=== PATIENT | male | born 1980 | race Caucasian/White ===

== ENCOUNTER 2022-12-21 14:20 | Emergency (ER) | payer MEDICARE, MEDICAID, SELFPAY ==
[2022-12-21 14:30] VITALS: BP 127/87; PULSE 95; RESP 14; TEMP 36.4; O2SAT 96
[2022-12-21 15:28] VITALS: BP 120/87; PULSE 89; RESP 17; TEMP 36.5; O2SAT 96
--- NOTE | 2022-12-21 15:49 | ED_ITS ---
Documented by User: BRISA Ken 12/21/22 16:07 HPI - Abdominal Pain General: Chief Complaint: Abdominal Pain Stated Complaint: abd pain Time Seen by Provider: 12/21/22 15:40 Source: patient Mode of arrival: ambulatory Limitations: no limitations History of Present Illness: Patient is a 42-year-old male who presents to ED today with a complaint of suprapubic abdominal pain that began approximately 3 to 4 days ago. He states pain seems to be worse with urination and defecation. He is able to pass stool and flatulence although has noted some loosening of stool consistency. He has not noticed any hematuria, cloudy, or odorous urine. No flank pain. No fevers. He is not having any nausea or vomiting. He denies any masses/bulges consistent with a hernia. He denies scrotal/testicular pain, redness, swelling. No penile discharge. Denies genitalia rashes/lesions. MD elicited complaint: abdominal pain Pertinent past history: none Pain Consistency: constant Location: Suprapubic Severity: mild Radiation: none Migration to: no migration Exacerbating factors: other (urinating/defecating) Relieving factors: nothing Associated Symptoms: Reports diarrhea; Denies chills, dysuria, fever(s), hematochezia, hematemesis, melena, nausea and vomiting Review of Systems Const: Denies: fever(s), chills, body aches, fatigue or malaise Card: Denies: chest pain Resp: Denies: dyspnea GI: Reports: abdominal pain and diarrhea; Denies: nausea, vomiting, hematemesis, hematochezia or melena : Denies: flank pain, difficulty urinating, dysuria, urinary frequency, urinary urgency or urinary hesitancy Musc: Denies: neck pain, back pain, extremity pain or joint pain Skin/Breast: Denies: rash Neuro: Denies: headache(s), numbness in extremities, weakness in extremities, sensory changes or dizziness [facility] ED PFSH: Medical History No pertinent family history Surgical History No pertinent past surgical history Physical Exam Const: COMMON NORMALS: no acute distress, patient oriented x3, no limitations, alert and well nourished ORIENTATION/CONSCIOUSNESS: Yes awake, Yes oriented to person, Yes oriented to place and Yes oriented to time HENMT: COMMON NORMALS: normocephalic and atraumatic HEAD & SCALP: normal to inspection, normocephalic and atraumatic Resp: COMMON NORMALS: normal respiratory effort and clear to auscultation bilaterally AUSCULTATION: clear to auscultation bilaterally Cardio: COMMON NORMALS: regular rate and regular rhythm RATE: regular rate RHYTHM: regular rhythm GI: COMMON NORMALS: Normal to inspection, nondistended, normoactive bowel sounds present, Soft to palpation, No hepatosplenomegaly present and no masses INSPECTION: Yes normal to inspection AUSCULTATION: Yes normoactive bowel sounds PALPATION: Yes Soft to palpation, Yes Tenderness to palpation present (GI) (suprapubic ), No Guarding due to palpation present (GI), No Rigid due to palpation and Yes No hepatosplenomegaly present : COMMON NORMALS: Yes no CVA tenderness, Yes normal external exam, Yes Testes normal, Yes scrotum normal, Yes no scrotal swelling and Yes No hernias present BLADDER/KIDNEY EXAM: Yes no CVA tenderness Back/Pelvis: COMMON NORMALS: no CVA tenderness, thoracic and lumbar spine normal to inspection, no thoracic nor lumbar tenderness and thoraco-lumbar ROM normal Extremity: COMMON NORMALS: normal to inspection GENERAL: Yes normal exam except as noted Neuro: SHANTE COMA SCALE: document GCS findings Shante coma scale eye opening: Spontaneous Shante coma scale verbal response: Orientated Davis coma scale motor response: Obey commands Shante coma scale total score: 15 COMMON NORMALS: patient oriented x3 and gait normal SENSORIUM/ORIENTATION: Yes alert, Yes oriented to person, Yes oriented to place and Yes oriented to time Skin: COMMON NORMALS: no rashes or lesions noted GENERAL SKIN EXAM: no rashes or lesions noted Course Vital Signs: Vital signs: Vital Signs Temperature 97.7 F 12/21/22 15:28 Pulse Rate 74 12/21/22 18:39 Respiratory Rate 18 12/21/22 18:39 Blood Pressure 147/97 12/21/22 18:39 Pulse Oximetry 98 12/21/22 18:39 Oxygen Delivery Me thod 12/21/22 15:28 MDM - Abdominal Pain Lab Data 12/21/22 15:32 12/21/22 15:32 Labs/Radiology: Radiology Impressions Abdomen/Pelvis CT 12/21/22 16:08 IMPRESSION: 1. 5.8 cm mass in the posterior right kidney, highly suspicious for renal cell carcinoma. 2. Acute sigmoid diverticulitis. COMMENTS: Consistent with the [employer]'s Incidental Findings Committee white paper (J Am Nellie Radiol 2018): Any incidental renal lesion less than 1 cm or classified as too small to characterize, or any incidental cystic renal lesion characterized as simple-appearing, is likely benign. No follow-up imaging is recommended for these lesions per consensus recommendations based on imaging criteria. ADDENDUM: 12/21/22 1800 THIS REPORT CONTAINS FINDINGS THAT MAY BE CRITICAL TO PATIENT CARE. The findings were verbally communicated via telephone conference with BRISA Green at 5:58 PM CDT on 12/21/2022. The findings were acknowledged and understood. Laboratory Results WBC 12.2 10^3/uL (4.0-10.0) H 12/21/22 15:32 RBC 5.39 10^6/uL (4.1-5.3) H 12/21/22 15:32 Hgb 15.6 g/dL (11.7-16.6) 12/21/22 15:32 Hct 46.9 % (42.0-52.0) 12/21/22 15:32 MCV 87.0 fl (80-94) 12/21/22 15:32 MCH 28.9 pg (28.0-34.0) 12/21/22 15:32 MCHC 33.3 g/dL (30.0-36.0) 12/21/22 15:32 RDW 13.5 % (12.1-15.1) 12/21/22 15:32 Plt Count 318 10^3/cmm (130-400) 12/21/22 15:32 MPV 11.0 fL (7.4-10.4) H 12/21/22 15:32 Neut % (Auto) 61.9 % 12/21/22 15:32 Lymph % (Auto) 26.4 % 12/21/22 15:32 [place] % (Auto) 9.2 % 12/21/22 15:32 Eos % (Auto) 1.5 % 12/21/22 15:32 Baso % (Auto) 0.7 % 12/21/22 15:32 Neut # (Auto) 7.53 10^3/uL (1.8-7.7) 12/21/22 15:32 Lymph # (Auto) 3.2 10^3/uL (0.8-4.8) 12/21/22 15:32 [place] # (Auto) 1.1 10^3/uL (0.2-0.9) H 12/21/22 15:32 Eos # (Auto) 0.2 10^3/uL (0.0-0.8) 12/21/22 15:32 Baso # (Auto) 0.1 10^3/uL (0.0-0.1) 12/21/22 15:32 Nucleated RBC % (auto) 0 % 12/21/22 15:32 Nucleated RBCs # 0.0 /100WBC 12/21/22 15:32 Sodium 139 mmol/L (136-145) 12/21/22 15:32 Potassium 3.6 mmol/L (3.5-5.1) 12/21/22 15:32 Chloride 100 mmol/L (98-107) 12/21/22 15:32 Carbon Dioxide 29 mmol/L (22-29) 12/21/22 15:32 Anion Gap 13.6 (5-19) 12/21/22 15:32 BUN 6 mg/dL (6-20) 12/21/22 15:32 Creatinine 0.8 mg/dL (0.7-1.2) 12/21/22 15:32 GFR Calculation 106.5 mL/min (90-130) 12/21/22 15:32 Glucose 96 mg/dL (65-115) 12/21/22 15:32 Calculated Osmolality 285 mOsm/kg (285-295) 12/21/22 15:32 Calcium 8.6 mg/dL (8.5-10.5) 12/21/22 15:32 Total Bilirubin 0.4 mg/dL (0.15-1.2) 12/21/22 15:32 AST 16 U/L (0-40) 12/21/22 15:32 ALT 23 U/L (0-41) 12/21/22 15:32 Alkaline Phosphatase 60 U/L (40-130) 12/21/22 15:32 Total Protein 7.3 g/dL (6.6-8.7) 12/21/22 15:32 Albumin 3.9 g/dL (3.5-5.2) 12/21/22 15:32 Globulin 3.4 g/dL (1.3-4.6) 12/21/22 15:32 Lipase 17 U/L (13-60) 12/21/22 15:32 Urine Color Yellow (Yellow) 12/21/22 15:49 Urine Appearance Clear (CLEAR) 12/21/22 15:49 Urine pH 6 (5-7) 12/21/22 15:49 Ur Specific [place] 1.010 (1.005-1.030) 12/21/22 15:49 Urine Protein Neg (Negative) 12/21/22 15:49 Urine Glucose (UA) Norm (Normal) 12/21/22 15:49 Urine Ketones Negative (Negative) 12/21/22 15:49 Urine Blood Neg (Negative) 12/21/22 15:49 Urine Nitrate Negative (Negative) 12/21/22 15:49 Urine Bilirubin Neg (Negative) 12/21/22 15:49 Urine Urobilinogen Norm mg/dL (Negative) 12/21/22 15:49 Ur Leukocyte Esterase Negative (Negative) 12/21/22 15:49 Discharge Plan Discharge Patient Disposition: Home Clinical Impression: Sigmoid diverticulitis, Mass of right kidney Condition: Stable Prescriptions: New metronidazole 500 mg tablet 500 mg PO Q8H 7 Days Qty: 21 0RF ciprofloxacin HCl 500 mg tablet 500 mg PO BID 7 Days Qty: 14 0RF ondansetron 4 mg tablet,disintegrating 4 mg PO Q8H PRN (Reason: nausea and vomiting) Qty: 20 0RF No Action omeprazole 20 mg tablet,delayed release (DR/EC) 20 mg PO DAILY Discharge Orders: Discharge ED (Routine); Ordered 12/21/22 Ordered By: Davidson Villa Referrals: Crystal Robison NP [Primary Care Provider] - Discharge Diet: Advance as tolerated Discharge Activity: Resume usual activity Activity Restrictions/Additional Instructions: Follow-up with primary care provider within the next 7 to 10 days for reevaluation. Case management should be contacting you in the next several days to set up an appointment with urologist and oncologist for further evaluation of right renal mass. Take medications as prescribed. Return to the ER or your medical provider if condition worsens. Please read and understand discharge instructions. Thank you for choosing [facility] for your healthcare needs today. Please realize this is an emergency room and that we are providing you with a medical screening exam and this may not be complete and all inclusive of all the testing and or work up that you may need to determine your ailment or severity of your illness. It is very important that you follow up as instructed or that you return to the Emergency Department should you have concerns or if your condition changes or worsens in any way. Sign Out Sign Out Data: Patient Sign Out occurred on 12/21/22 at 17:12. Patient's care was discussed, and care was transferred from to BRISA Catalan. Coding Level of Care Code ED Remote Sensing Analyst for [place] [facility] Documented by User: BRISA Catalan 12/22/22 02:12 HPI - Abdominal Pain General: Chief Complaint: Abdominal Pain Stated Complaint: abd pain Time Seen by Provider: 12/21/22 15:40 [facility] ED PFSH: Medical History No pertinent family history Surgical History No pertinent past surgical history Physical Exam Neuro: SHANTE COMA SCALE: document GCS findings Shante coma scale total score: 15 Course Vital Signs: Vital signs: Vital Signs Temperature 97.7 F 12/21/22 15:28 Pulse Rate 74 12/21/22 18:39 Respiratory Rate 18 12/21/22 18:39 Blood Pressure 147/97 12/21/22 18:39 Pulse Oximetry 98 12/21/22 18:39 Oxygen Delivery Me thod 12/21/22 15:28 MDM - Abdominal Pain Medical Decision Making Patient is a 42-year-old male who presents to ED today with a complaint of suprapubic abdominal pain that began approximately 3 to 4 days ago. He states pain seems to be worse with urination and defecation. He is able to pass stool and flatulence although has noted some loosening of stool consistency. He has not noticed any hematuria, cloudy, or odorous urine. No flank pain. No fevers. He is not having any nausea or vomiting. Vitals are stable. Patient appears in no acute distress or pain and has some tenderness upon palpation of the suprapubic area. Rest of exam is benign. Labs are all unremarkable. CT of abdomen pelvis shows acute sigmoid diverticulitis with no bowel perforation or abscess seen. 5.8 cm mass in the posterior right kidney noted, which is highly suspicious for renal cell carcinoma. I told patient about CT findings of diverticulitis and right kidney mass. I placed orders with case management for patient be referred to oncology and urologist for further evaluation and work-up of right renal mass. Patient was stable for discharge home and sent with a pr escription for antibiotics and Zofran. Follow-up with PCP within the next week for reevaluation. Strict return to ED precautions given. Patient understood and agreed with plan. Dr. Parisi reviewed case and agreed with plan. Lab Data I reviewed the patient's lab results. 12/21/22 15:32 12/21/22 15:32 Labs/Radiology: Radiology Impressions Abdomen/Pelvis CT 12/21/22 16:08 IMPRESSION: 1. 5.8 cm mass in the posterior right kidney, highly suspicious for renal cell carcinoma. 2. Acute sigmoid diverticulitis. COMMENTS: Consistent with the [employer]'s Incidental Findings Committee white paper (J Am Nellie Radiol 2018): Any incidental renal lesion less than 1 cm or classified as too small to characterize, or any incidental cystic renal lesion characterized as simple-appearing, is likely benign. No follow-up imaging is recommended for these lesions per consensus recommendations based on imaging criteria. ADDENDUM: 12/21/22 1800 THIS REPORT CONTAINS FINDINGS THAT MAY BE CRITICAL TO PATIENT CARE. The findings were verbally communicated via telephone conference with BRISA Green at 5:58 PM CDT on 12/21/2022. The findings were acknowledged and understood. Laboratory Results WBC 12.2 10^3/uL (4.0-10.0) H 12/21/22 15:32 RBC 5.39 10^6/uL (4.1-5.3) H 12/21/22 15:32 Hgb 15.6 g/dL (11.7-16.6) 12/21/22 15:32 Hct 46.9 % (42.0-52.0) 12/21/22 15: MCV 87.0 fl (80-94) 12/21/22 15:32 MCH 28.9 pg (28.0-34.0) 12/21/22 15: MCHC 33.3 g/dL (30.0-36.0) 12/21/22 15: RDW 13.5 % (12.1-15.1) 12/21/22 15:32 Plt Count 318 10^3/cmm (130-400) 12/21/22 15: MPV 11.0 fL (7.4-10.4) H 12/21/22 15:32 Neut % (Auto) 61.9 % 12/21/22 15:32 Lymph % (Auto) 26.4 % 12/21/22 15:32 [place] % (Auto) 9.2 % 12/21/22 15: Eos % (Auto) 1.5 % 12/21/22 15:32 Baso % (Auto) 0.7 % 12/21/22 15:32 Neut # (Auto) 7.53 10^3/uL (1.8-7.7) 12/21/22 15:32 Lymph # (Auto) 3.2 10^3/uL (0.8-4.8) 12/21/22 15:32 [place] # (Auto) 1.1 10^3/uL (0.2-0.9) H 12/21/22 15:32 Eos # (Auto) 0.2 10^3/uL (0.0-0.8) 12/21/22 15:32 Baso # (Auto) 0.1 10^3/uL (0.0-0.1) 12/21/22 15: Nucleated RBC % (auto) 0 % 12/21/22 15: Nucleated RBCs # 0.0 /100WBC 12/21/22 15:32 Sodium 139 mmol/L (136-145) 12/21/22 15:32 Potassium 3.6 mmol/L (3.5-5.1) 12/21/22 15:32 Chloride 100 mmol/L (98-107) 12/21/22 15:32 Carbon Dioxide 29 mmol/L (22-29) 12/21/22 15:32 Anion Gap 13.6 (5-19) 12/21/22 15:32 BUN 6 mg/dL (6-20) 12/21/22 15:32 Creatinine 0.8 mg/dL (0.7-1.2) 12/21/22 15:32 GFR Calculation 106.5 mL/min (90-130) 12/21/22 15:32 Glucose 96 mg/dL (65-115) 12/21/22 15:32 Calculated Osmolality 285 mOsm/kg (285-295) 12/21/22 15:32 Calcium 8.6 mg/dL (8.5-10.5) 12/21/22 15:32 Total Bilirubin 0.4 mg/dL (0.15-1.2) 12/21/22 15:32 AST 16 U/L (0-40) 12/21/22 15:32 ALT 23 U/L (0-41) 12/21/22 15:32 Alkaline Phosphatase 60 U/L (40-130) 12/21/22 15:32 Total Protein 7.3 g/dL (6.6-8.7) 12/21/22 15:32 Albumin 3.9 g/dL (3.5-5.2) 12/21/22 15:32 Globulin 3.4 g/dL (1.3-4.6) 12/21/22 15:32 Lipase 17 U/L (13-60) 12/21/22 15:32 Urine Color Yellow (Yellow) 12/21/22 15:49 Urine Appearance Clear (CLEAR) 12/21/22 15:49 Urine pH 6 (5-7) 12/21/22 15:49 Ur Specific [place] 1.010 (1.005-1.030) 12/21/22 15:49 Urine Protein Neg (Negative) 12/21/22 15:49 Urine Glucose (UA) Norm (Normal) 12/21/22 15:49 Urine Ketones Negative (Negative) 12/21/22 15:49 Urine Blood Neg (Negative) 12/21/22 15:49 Urine Nitrate Negative (Negative) 12/21/22 15:49 Urine Bilirubin Neg (Negative) 12/21/22 15:49 Urine Urobilinogen Norm mg/dL (Negative) 12/21/22 15:49 Ur Leukocyte Esterase Negative (Negative) 12/21/22 15:49 Discharge Plan Discharge Patient Disposition: Home Clinical Impression: Sigmoid diverticulitis, Mass of right kidney Condition: Stable Prescriptions: New metronidazole 500 mg tablet 500 mg PO Q8H 7 Days Qty: 21 0RF ciprofloxacin HCl 500 mg tablet 500 mg PO BID 7 Days Qty: 14 0RF ondansetron 4 mg tablet,disintegrating 4 mg PO Q8H PRN (Reason: nausea and vomiting) Qty: 20 0RF No Action omeprazole 20 mg tablet,delayed release (DR/EC) 20 mg PO DAILY Discharge Orders: Discharge ED (Routine); Ordered 12/21/22 Ordered By: Davidson Villa Referrals: Crystal Robison NP [Primary Care Provider] - Discharge Diet: Advance as tolerated Discharge Activity: Resume usual activity Activity Restrictions/Additional Instructions: Follow-up with primary care provider within the next 7 to 10 days for reevaluation. Case management should be contacting you in the next several days to set up an appointment with urologist and oncologist for further evaluation of right renal mass. Take medications as prescribed. Return to the ER or your medical provider if condition worsens. Please read and understand discharge instructions. Thank you for choosing [facility] for your healthcare needs today. Please realize this is an emergency room and that we are providing you with a medical screening exam and this may not be complete and all inclusive of all the testing and or work up that you may need to determine your ailment or severity of your illness. It is very important that you follow up as instructed or that you return to the Emergency Department should you have concerns or if your co ndition changes or worsens in any way. Sign Out Sign Out Data: Patient Sign Out occurred on 12/21/22 at 17:12. Patient's care was discussed, and care was transferred from to BRISA Catalan. Coding Level of Care Code ED Remote Sensing Analyst for Natacha Harvey
[2022-12-21 15:52] LABS: Basophils # 0.1 10^3/uL (0.0-0.1); Basophils % 0.7 %; Eosinophils # 0.2 10^3/uL (0.0-0.8); Eosinophils % 1.5 %; Hematocrit 46.9 % (42.0-52.0); Hemoglobin 15.6 g/dL (11.7-16.6); Lymphocytes # 3.2 10^3/uL (0.8-4.8); Lymphocytes % 26.4 %; Mean Corpuscular HGB Conc 33.3 g/dL (30.0-36.0); Mean Corpuscular Hemoglobin 28.9 pg (28.0-34.0); Monocytes # 1.1 10^3/uL (0.2-0.9); Monocytes % 9.2 %; Neutrophils # 7.53 10^3/uL (1.8-7.7); Neutrophils % 61.9 %; Nucleated Red Blood Cells % 0 %; Platelet Count 318 10^3/cmm (130-400); Red Blood Count 5.39 10^6/uL (4.1-5.3); Red Cell Distribution Width 13.5 % (12.1-15.1); White Blood Count 12.2 10^3/uL (4.0-10.0)
[2022-12-21 16:02] LABS: Add Urine Microscopic? NO; Charge for UA Resulting for Rev
[2022-12-21 16:06] LABS: Bilirubin Urine Neg (Negative); Blood Urine Neg (Negative); Glucose Urine UA Norm (Normal); Ketones Urine Negative (Negative); Leukocyte Esterase Urine Negative (Negative); Nitrate Urine Negative (Negative); Protein Urine Neg (Negative); Urine Appearance Clear (CLEAR); Urine Color Yellow (Yellow); Urobilinogen Urine Norm (Negative); pH Urine 6 (5-7)
--- NOTE | 2022-12-21 16:08 | CTR_ITS ---
PROCEDURE INFORMATION: Exam: CT Abdomen And Pelvis With Contrast Exam date and time: 12/21/2022 5:16 PM Age: 42 years old Clinical indication: Abdominal pain; Other: Lower abd pelvic pain; Additional info: Lower ab/pelvis pain TECHNIQUE: Imaging protocol: Computed tomography of the abdomen and pelvis with contrast. Radiation optimization: All CT scans at this facility use at least one of these dose optimization techniques: automated exposure control; mA and/or kV adjustment per patient size (includes targeted exams where dose is matched to clinical indication); or iterative reconstruction. Contrast material: OMNI 350; Contrast volume: 100 ml; Contrast route: INTRAVENOUS (IV); REPORTING DATA: Count of CT and Cardiac NM exams in prior 12 months: This patient has received 0 known CTs and 0 known cardiac nuclear medicine studies in the 12 months prior to the current study. COMPARISON: CT lumbar spine w con [id number] 03/05/2019 9:40 AM RADIATION DOSE METRICS: Total DLP (mGy-cm): 939.63 FINDINGS: Liver: 1.8 cm cyst in the superior left liver lobe, Hounsfield units less than 20. Mild diffuse fatty infiltration. No suspicious nodule. Gallbladder and bile ducts: Normal. No calcified stones. No ductal dilation. Pancreas: Normal. No ductal dilation. Spleen: Normal. No splenomegaly. Adrenal glands: Normal. No mass. Kidneys and ureters: 5.8 x 4.0 x 4.3 cm lobulated inhomogenous hypodense mass in the posterior mid right kidney with mild adjacent fat stranding. No extension into the right renal vein. The left kidney is normal. No calculus or hydronephrosis. Stomach and bowel: Diverticulosis of the sigmoid colon. There is inflammation of a diverticulum in the posterior proximal sigmoid colon with adjacent fat stranding, consistent with acute diverticulitis. No evidence for perforation. The stomach and small bowel are unremarkable. No obstruction. Appendix: The appendix is visualized and is normal. Intraperitoneal space: Fat stranding in the pelvis. No free air. No organized fluid collection. Vasculature: Unremarkable. No aneurysm. Lymph nodes: Unremarkable. No enlarged lymph nodes. Urinary bladder: Unremarkable as visualized. Reproductive: Unremarkable as visualized. Bones/joints: Anterior and posterior fusion of L5-S1. No acute fracture. Soft tissues: Unremarkable. CT/CT abdomen pelvis w con* [id number] IMPRESSION: 1. 5.8 cm mass in the posterior right kidney, highly suspicious for renal cell carcinoma. 2. Acute sigmoid diverticulitis. COMMENTS: Consistent with the [employer]'s Incidental Findings Committee white paper (J Am Nellie Radiol 2018): Any incidental renal lesion less than 1 cm or classified as too small to characterize, or any incidental cystic renal lesion characterized as simple-appearing, is likely benign. No follow-up imaging is recommended for these lesions per consensus recommendations based on imaging criteria.
[2022-12-21 16:09] LABS: Alanine Aminotransferase 23 U/L (0-41); Albumin Level 3.9 g/dL (3.5-5.2); Alkaline Phosphatase 60 U/L (40-130); Anion Gap 13.6 (5-19); Aspartate Amino Transferase 16 U/L (0-40); Blood Urea Nitrogen 6 mg/dL (6-20); Calcium 8.6 mg/dL (8.5-10.5); Carbon Dioxide 29 mmol/L (22-29); Chloride 100 mmol/L (98-107); Creatinine Clr Calc Pharmacy 148.6306; Globulin 3.4 g/dL (1.3-4.6); Glomerular Filtration Rate 106.5 mL/min (90-130); Glucose 96 mg/dL (65-115); Lipase 17 U/L (13-60); Osmolality Calculated 285 mOsm/kg (285-295); Potassium 3.6 mmol/L (3.5-5.1); Sodium 139 mmol/L (136-145); Total Bilirubin 0.4 mg/dL (0.15-1.2); Total Protein 7.3 g/dL (6.6-8.7)
[2022-12-21] MEDS: iohexol 350 mg/mL 500 mL Btl (per mL) IV (17:19)
[2022-12-21 18:39] VITALS: BP 147/97; PULSE 74; RESP 18; O2SAT 98
--- NOTE | 2022-12-22 10:44 | DCPLANNER ---
Addendum entered by Genny Steven 12/24/22 09:47: track manager called patient and spoke with his mother and explained this, patients mother stated that patient is following up with his primary care physician next week. Addendum entered by Genny Steven 12/24/22 08:09: track manager received the following message from the urology clinic regarding follow up appointment: This referral will need to be sent elsewhere. Thank you. Shani Original Note: track manager had message to schedule a follow up appointment for patient with urology. track manager sent patients information to the front office staff at urology. Patients information will be reviewed, clinic will call patient with appointment information.
--- NOTE | 2022-12-22 14:21 | DCPLANNER ---
Addendum entered by Genny Steven 12/24/22 09:42: health services manager received the following message from the oncology clinic regarding follow up appointment: This patient will need to have a biopsy completed prior to being able to schedule him. His primary care provider should be able to order the biopsy. Thank you. health services manager called patient and spoke with his mother and explained that patient would need to see primary care physician to get biospy completed. Patients mom stated that patient has a follow up appointment scheduled with his primary care physician next week. Original Note: health services manager had message to schedule a follow up appointment for patient with oncology. health services manager sent patients information to the front office staff at oncology. Patients information will be reviewed, clinic will call patient with information.
== END 2022-12-21 18:41 | disposition home or self-care (01) ==
PROVIDERS: Physician Assistant; Emergency Provider Physician Assistant; PCP Nurse Practitioner
DX: K57.32 Diverticulitis of large intestine without perforation or abscess without bleeding (principal); N28.89 Other specified disorders of kidney and ureter
CPT/HCPCS: 36415; 74177; 80053; 81003; 83690; 85025; 99285; Q9967